=== PATIENT | female | born 1980 | race Caucasian/White ===

== ENCOUNTER 2021-01-23 23:45 | Observation (INO) | payer MEDICAID, SELFPAY ==
[2021-01-23 23:51] VITALS: BP 113/67; PULSE 75; RESP 12; TEMP 36.6; O2SAT 97; BMI 19.7
[2021-01-24] VITALS (25 sets, daily range): BP systolic 94–129; BP diastolic 62–87; PULSE 53–88; RESP 0–17; TEMP 36.4; O2SAT 97–100
[2021-01-24] MEDS: sodium chloride 0.9% 1,000 ML 999 ML IV (00:28)
[2021-01-24 00:33] LABS: Glucose Point of Care 60 mg/dL (70-110)
[2021-01-24 00:52] LABS: Amphetamines Screen Urine Positive (Negative); Barbiturates Screen Urine Negative (Negative); Benzodiazepines Screen Urine Negative (Negative); Cocaine Screen Urine Negative (Negative); Opiate Screen Urine Negative (Negative); PCP Screen Urine Negative (Negative); THC Screen Urine Positive (Negative)
[2021-01-24 00:54] LABS: Add Urine Culture? Yes; Add Urine Microscopic? YES; Bacteria Urine 4+ /hpf; Bilirubin Urine Neg (Negative); Blood Urine Neg (Negative); Glucose Urine UA Norm (Normal); Ketones Urine Negative (Negative); Leukocyte Esterase Urine 1+ (Negative); Nitrate Urine Positive (Negative); Protein Urine Neg (Negative); RBC Urine 0-4 /hpf (0-2); Specific Gravity, Urine 1.005 (1.005-1.030); Squamous Epithelial Cell Urine 0-4 /hpf (0-5); Urine Appearance Hazy (CLEAR); Urine Color Yellow (Yellow); Urobilinogen Urine Norm (Negative); WBC Urine 40-55 /hpf (0-5); pH Urine 7 (5-7)
[2021-01-24 00:55] LABS: HCG Qualitative Urine. Negative (Negative)
[2021-01-24 01:12] LABS: Acetaminophen < 5.0 ug/mL (10-30); Alanine Aminotransferase 8 U/L (0-33); Albumin Level 4.3 g/dL (3.5-5.2); Alcohol Level < 10 mg/dL (0-10); Alkaline Phosphatase 60 IU/L (35-105); Anion Gap 10.9 (5-19); Aspartate Amino Transferase 17 U/L (0-32); Blood Urea Nitrogen 12 mg/dL (6-20); Calcium 8.5 mg/dL (8.5-10.5); Carbon Dioxide 28 mmol/L (22-29); Chloride 104 mmol/L (98-107); Glomerular Filtration Rate 110.2 mL/min (90-130); Glucose 80 mg/dL (65-115); Osmolality Calculated 287 mOsm/kg (285-295); Potassium 3.9 mmol/L (3.5-5.1); Salicylate < 0.3 mg/dL (3-10); Sodium 139 mmol/L (136-145); Thyroid Stimulating Hormone 4.63 uIU/mL (0.27-4.20); Total Bilirubin 0.2 mg/dL (0.15-1.2); Total Protein 6.3 g/dL (6.6-8.7)
[2021-01-24 01:19] LABS: Basophils # 0.1 10^3/uL (0.0-0.1); Basophils % 0.9 %; Eosinophils # 0.2 10^3/uL (0.0-0.8); Eosinophils % 2.6 %; Hematocrit 38.8 % (37.0-47.0); Hemoglobin 12.7 g/dL (11.5-15.3); Mean Corpuscular HGB Conc 32.7 g/dL (30.0-36.0); Mean Corpuscular Hemoglobin 32.5 pg (28.0-34.0); Mean Corpuscular Volume 99.2 fL (81-99); Mean Platelet Volume 9.8 fL (7.4-10.4); Monocytes # 0.5 10^3/uL (0.2-0.9); Monocytes % 6.5 %; Neutrophils # 3.37 10^3/uL (1.8-7.7); Neutrophils % 47.9 %; Nucleated Red Blood Cells % 0 %; Platelet Count 251 10^3/cmm (130-400); Red Blood Count 3.91 10^6/uL (4.1-5.3); Red Cell Distribution Width 12.6 % (12.1-15.1)
--- NOTE | 2021-01-24 01:32 | CTR_ITS ---
PROCEDURE INFORMATION: Exam: CT Head Without Contrast Exam date and time: 01/24/2021 1:33 AM Age: 40 years old Clinical indication: Altered mental status/memory loss; Patient HX: AMS. Unresponsive. Non verbal. TECHNIQUE: Imaging protocol: Computed tomography of the head without contrast. Radiation optimization: All CT scans at this facility use at least one of these dose optimization techniques: automated exposure control; mA and/or kV adjustment per patient size (includes targeted exams where dose is matched to clinical indication); or iterative reconstruction. COMPARISON: No relevant prior studies available. RADIATION DOSE METRICS: Total DLP (mGy-cm): 988.19 FINDINGS: Brain: Normal. No infarct or hemorrhage. Unremarkable white matter. No mass effect. Cerebral ventricles: No ventriculomegaly. Bones/joints: Unremarkable. No acute fracture. Paranasal sinuses: Paranasal sinuses are clear. No air-fluid level. Mastoid air cells: Visualized mastoid air cells are clear. Soft tissues: Unremarkable. CT/CT head wo con* [id number] IMPRESSION: No acute intracranial abnormality. Radiation Dose CTDIVOL = (mGy): DLP = 988.19 (mGy-cm)
--- NOTE | 2021-01-24 02:31 | ED_ITS ---
HPI - Altered Mental Status General: Chief Complaint: Altered Mental Status Stated Complaint: FOUND UNRESPONSIVE Time Seen by Provider: 01/24/21 00:11 History of Present Illness: HPI narrative: 40-year-old female brought in with altered mental status. [facility] complaint: altered mental status and decreased responsiveness Onset (ago): unknown Severity: moderate Consistency of symptoms: Unknown Context: unknown Review of Systems General: Reports: ROS unobtainable due to mental status PFS ED PFSH: Medical History (Updated 01/24/21 @ 03:35 by Quinn Wilburn MD) No significant medical problems Surgical History (Updated 01/24/21 @ 03:35 by Quinn Wilburn MD) No pertinent past surgical history Family History (Updated 01/24/21 @ 03:36 by Quinn Wilburn MD) Other No pertinent family history Social History (Updated 01/24/21 @ 03:36 by Quinn Wilburn MD) Smoking and tobacco status: current every day smoker Alcohol intake: current Substance/Drug Use: never Housing: House Female Reproductive History: Date of last menstrual period: 01/23/21 Physical Exam Narrative: EXAM NARRATIVE: 40-year-old female brought in with altered mental status. Patient does not respond verbally. She does respond to sternal rubs. She moves all extremities. Const: COMMON NORMALS: average body habitus, healthy appearing and well nourished; negative for patient oriented x3 and negative for alert EXAM LIMITATIONS: altered mental status GENERAL APPEARANCE: well kempt and lethargic ORIENTATION/CONSCIOUSNESS: Yes lethargic and Yes Other orientation findings (Unresponsive to verbal stimuli.); not awake, not oriented to person, not oriented to place and not oriented to time HENMT: COMMON NORMALS: normocephalic and atraumatic HEAD & SCALP: normocephalic and atraumatic FACE & SINUS: normal facial exam MOUTH: Normal oral and palatal mucosa present Eye: COMMON NORMALS: Equal, round and reactive pupils present GENERAL EYE: appearance normal, both eyes and all related structures and normal light reflex PUPIL: Yes Equal, round and reactive pupils present DIRECT OPHTHALMOSCOPY: Yes normal light reflex Neck/C-Spine: COMMON NORMALS: full ROM, no lymphadenopathy, supple, no meningeal signs, no JVD, Thyroid normal and No carotid bruits GENERAL: Yes normal visual inspection and Yes trachea midline THYROID: Thyroid normal CERVICAL SPINE: Yes normal cervical lordosis and No pain with cervical ROM Resp: COMMON NORMALS: normal respiratory effort, No retractions, No use of accessory muscles and clear to auscultation bilaterally EFFORT & INSPECTION: No able to speak in complete sentences (Patient unresponsive to verbal stimuli), Yes symmetric chest movement, No tachypneic, No respiratory distress, No labored, No grunting, No stridor, No Actively coughing, No retractions and No uses accessory muscles AUSCULTATION: clear to auscultation bilaterally, no crackles, no rales, no rhonchi and no wheezes Cardio: COMMON NORMALS: no JVD, regular rate, regular rhythm, No gallops present (Cardio), No clicks present (Cardio), No murmurs present (Cardio) and No rub (Cardio) RATE: regular rate RHYTHM: regular rhythm GI: COMMON NORMALS: Soft to palpation, non-tender and No hepatosplenomegaly present INSPECTION: Yes normal to inspection PALPATION: Yes Soft to palpation and Yes No hepatosplenomegaly present : COMMON NORMALS: Yes no CVA tenderness BLADDER/KIDNEY EXAM: Yes no CVA tenderness Back/Pelvis: COMMON NORMALS: no CVA tenderness Extremity: COMMON NORMALS: normal to inspection, no joint enlargement, no clubbing, cyanosis or edema, no calf tenderness and no pedal edema Neuro: COMMON NORMALS: moves all extremities and no focal motor deficits; negative for patient oriented x3 SENSORIUM/ORIENTATION: No alert, No oriented to person, No oriented to place, No oriented to time, Yes Orientation impaired, Yes lethargic and Yes somnolent MENINGEAL SIGNS: Yes no meningeal signs GAIT: Yes Unable to assess gait Psych: APPEARANCE: Yes well kempt OTHER: Not able to evaluate psychiatric conditions secondary to altered mental status Course Reevaluation(s): Reevaluation #1: Patient did not respond to Narcan. Vital Signs: Vital signs: Vital Signs Temperature 97.8 F 01/23/21 23:51 Pulse Rate 57 L 01/24/21 06:00 Respiratory Rate 15 01/24/21 06:00 Blood Pressure 107/78 01/24/21 06:00 Pulse Oximetry 100 01/24/21 06:00 MDM - Altered Mental Status Lab Data: Labs: Lab Results 01/24/21 01/24/21 01/24/21 Range/Units 00:27 00:27 00:27 WBC Cancelled Corrected WBC Cancelled RBC Cancelled Hgb Cancelled Hct Cancelled MCV Cancelled MCH Cancelled MCHC Cancelled RDW Cancelled Plt Count Cancelled MPV Cancelled Gran % Cancelled Neut % (Auto) Cancelled Lymph % (Auto) Cancelled Placer % (Auto) Cancelled Eos % (Auto) Cancelled Baso % (Auto) Cancelled Neut # (Auto) Cancelled Lymph # (Auto) Cancelled Placer # (Auto) Cancelled Eos # (Auto) Cancelled Baso # (Auto) Cancelled Absolute Gran (aut o) Cancelled Nucleated RBC % (a uto) Cancelled Nucleated RBCs # Cancelled Specimen Type Sample Site ABG pH (7.35-7.45) ABG pCO2 (35-45) mmHg ABG pO2 (80.0-100.0) mmH g ABG HCO3 (22-26) mmol/L ABG Base Excess (-2.0-2.0) mmol/ L Rio Test Hematocrit (37-47) % O2 Delivery Device Internal Sales Engineer ID Sodium 139 (136-145) mmol/L Potassium 3.9 (3.5-5.1) mmol/L Chloride 104 (98-107) mmol/L Carbon Dioxide 28 (22-29) mmol/L Anion Gap 10.9 (5-19) BUN 12 (6-20) mg/dL Creatinine 0.6 (0.5-0.9) mg/dL GFR Calculation 110.2 (90-130) mL/min Glucose 80 (65-115) mg/dL POC Glucose (70-110) mg/dL Calculated Osmolal ity 287 (285-295) mOsm/k g Calcium 8.5 (8.5-10.5) mg/dL Total Bilirubin 0.2 (0.15-1.2) mg/dL AST 17 (0-32) U/L ALT 8 (0-33) U/L Alkaline Phosphata se 60 (35-105) IU/L Total Protein 6.3 L (6.6-8.7) g/dL Albumin 4.3 (3.5-5.2) g/dL Globulin 2.0 (1.3-4.6) g/dL Vitamin B12 (232-1245) pg/mL TSH 4.63 H (0.27-4.20) uIU/ mL Free T4 (0.82-1.77) ng/d L Prolactin (4.8-23.3) ng/mL HCG, Qual Negative (Negative) Urine Color (Yellow) Urine Appearance (CLEAR) Urine pH (5-7) Ur Specific Gravit y (1.005-1.030) Urine Protein (Negative) Urine Glucose (UA) (Normal) Urine Ketones (Negative) Urine Blood (Negative) Urine Nitrate (Negative) Urine Bilirubin (Negative) Urine Urobilinogen (Negative) mg/dL Ur Leukocyte Idalia ase (Negative) Urine RBC (0-2) /hpf Urine WBC (0-5) /hpf Ur Squamous Epith Cells (0-5) /hpf Amorphous Sediment Urine Bacteria (NONE) /hpf Salicylates < 0.3 L (3-10) mg/dL Urine Opiates Scre en (Negative) ng/mL Acetaminophen < 5.0 L (10-30) ug/mL Ur Barbiturates Sc reen (Negative) ng/mL Ur Phencyclidine S crn (Negative) ng/mL Ur Amphetamines Sc reen (Negative) ng/mL U Benzodiazepines Scrn (Negative) ng/mL Urine Cocaine Scre en (Negative) ng/mL U Marijuana (THC) Screen (Negative) ng/mL Ethyl Alcohol < 10 (0-10) mg/dL 01/24/21 01/24/21 01/24/21 Range/Units 00:27 00:27 00:27 WBC Corrected WBC RBC Hgb Hct MCV MCH MCHC RDW Plt Count MPV Gran % Neut % (Auto) Lymph % (Auto) Placer % (Auto) Eos % (Auto) Baso % (Auto) Neut # (Auto) Lymph # (Auto) Placer # (Auto) Eos # (Auto) Baso # (Auto) Absolute Gran (aut o) Nucleated RBC % (a uto) Nucleated RBCs # Specimen Type Sample Site ABG pH (7.35-7.45) ABG pCO2 (35-45) mmHg ABG pO2 (80.0-100.0) mmH g ABG HCO3 (22-26) mmol/L ABG Base Excess (-2.0-2.0) mmol/ L Rio Test Hematocrit (37-47) % O2 Delivery Device Internal Sales Engineer ID Sodium (136-145) mmol/L Potassium (3.5-5.1) mmol/L Chloride (98-107) mmol/L Carbon Dioxide (22-29) mmol/L Anion Gap (5-19) BUN (6-20) mg/dL Creatinine (0.5-0.9) mg/dL GFR Calculation (90-130) mL/min Glucose (65-115) mg/dL POC Glucose (70-110) mg/dL Calculated Osmolal ity (285-295) mOsm/k g Calcium (8.5-10.5) mg/dL Total Bilirubin (0.15-1.2) mg/dL AST (0-32) U/L ALT (0-33) U/L Alkaline Phosphata se (35-105) IU/L Total Protein (6.6-8.7) g/dL Albumin (3.5-5.2) g/dL Globulin (1.3-4.6) g/dL Vitamin B12 430 (232-1245) pg/mL TSH 4.68 H (0.27-4.20) uIU/ mL Free T4 0.90 (0.82-1.77) ng/d L Prolactin (4.8-23.3) ng/mL HCG, Qual (Negative) Urine Color Yellow (Yellow) Urine Appearance Hazy A (CLEAR) Urine pH 7 (5-7) Ur Specific Gravit y 1.005 (1.005-1.030) Urine Protein Neg (Negative) Urine Glucose (UA) Norm (Normal) Urine Ketones Negative (Negative) Urine Blood Neg (Negative) Urine Nitrate Positive H (Negative) Urine Bilirubin Neg (Negative) Urine Urobilinogen Norm (Negative) mg/dL Ur Leukocyte Idalia ase 1+ H (Negative) Urine RBC 0-4 H (0-2) /hpf Urine WBC 40-55 H (0-5) /hpf Ur Squamous Epith Cells 0-4 H (0-5) /hpf Amorphous Sediment Not Reportable Urine Bacteria 4+ H (NONE) /hpf Salicylates (3-10) mg/dL Urine Opiates Scre en Negative (Negative) ng/mL Acetaminophen (10-30) ug/mL Ur Barbiturates Sc reen Negative (Negative) ng/mL Ur Phencyclidine S crn Negative (Negative) ng/mL Ur Amphetamines Sc reen Positive H (Negative) ng/mL U Benzodiazepines Scrn Negative (Negative) ng/mL Urine Cocaine Scre en Negative (Negative) ng/mL U Marijuana (THC) Screen Positive H (Negative) ng/mL Ethyl Alcohol (0-10) mg/dL 01/24/21 01/24/21 01/24/21 Range/Units 00:27 00:29 01:13 WBC 7.0 Corrected WBC RBC 3.91 L Hgb 12.7 Hct 38.8 MCV 99.2 H MCH 32.5 MCHC 32.7 RDW 12.6 Plt Count 251 MPV 9.8 Gran % Neut % (Auto) 47.9 Lymph % (Auto) 42.0 Placer % (Auto) 6.5 Eos % (Auto) 2.6 Baso % (Auto) 0.9 Neut # (Auto) 3.37 Lymph # (Auto) 3.0 Placer # (Auto) 0.5 Eos # (Auto) 0.2 Baso # (Auto) 0.1 Absolute Gran (aut o) Nucleated RBC % (a uto) 0 Nucleated RBCs # 0.0 Specimen Type Sample Site ABG pH (7.35-7.45) ABG pCO2 (35-45) mmHg ABG pO2 (80.0-100.0) mmH g ABG HCO3 (22-26) mmol/L ABG Base Excess (-2.0-2.0) mmol/ L Rio Test Hematocrit (37-47) % O2 Delivery Device Internal Sales Engineer ID Sodium (136-145) mmol/L Potassium (3.5-5.1) mmol/L Chloride (98-107) mmol/L Carbon Dioxide (22-29) mmol/L Anion Gap (5-19) BUN (6-20) mg/dL Creatinine (0.5-0.9) mg/dL GFR Calculation (90-130) mL/min Glucose (65-115) mg/dL POC Glucose 60 L (70-110) mg/dL Calculated Osmolal ity (285-295) mOsm/k g Calcium (8.5-10.5) mg/dL Total Bilirubin (0.15-1.2) mg/dL AST (0-32) U/L ALT (0-33) U/L Alkaline Phosphata se (35-105) IU/L Total Protein (6.6-8.7) g/dL Albumin (3.5-5.2) g/dL Globulin (1.3-4.6) g/dL Vitamin B12 (232-1245) pg/mL TSH (0.27-4.20) uIU/ mL Free T4 (0.82-1.77) ng/d L Prolactin 22.55 (4.8-23.3) ng/mL HCG, Qual (Negative) Urine Color (Yellow) Urine Appearance (CLEAR) Urine pH (5-7) Ur Specific Gravit y (1.005-1.030) Urine Protein (Negative) Urine Glucose (UA) (Normal) Urine Ketones (Negative) Urine Blood (Negative) Urine Nitrate (Negative) Urine Bilirubin (Negative) Urine Urobilinogen (Negative) mg/dL Ur Leukocyte Idalia ase (Negative) Urine RBC (0-2) /hpf Urine WBC (0-5) /hpf Ur Squamous Epith Cells (0-5) /hpf Amorphous Sediment Urine Bacteria (NONE) /hpf Salicylates (3-10) mg/dL Urine Opiates Scre en (Negative) ng/mL Acetaminophen (10-30) ug/mL Ur Barbiturates Sc reen (Negative) ng/mL Ur Phencyclidine S crn (Negative) ng/mL Ur Amphetamines Sc reen (Negative) ng/mL U Benzodiazepines Scrn (Negative) ng/mL Urine Cocaine Scre en (Negative) ng/mL U Marijuana (THC) Screen (Negative) ng/mL Ethyl Alcohol (0-10) mg/dL 01/24/21 Range/Units 03:05 WBC Corrected WBC RBC Hgb Hct MCV MCH MCHC RDW Plt Count MPV Gran % Neut % (Auto) Lymph % (Auto) Placer % (Auto) Eos % (Auto) Baso % (Auto) Neut # (Auto) Lymph # (Auto) Placer # (Auto) Eos # (Auto) Baso # (Auto) Absolute Gran (aut o) Nucleated RBC % (a uto) Nucleated RBCs # Specimen Type Arterial Sample Site Radial, left ABG pH 7.36 (7.35-7.45) ABG pCO2 47.8 H (35-45) mmHg ABG pO2 87.1 (80.0-100.0) mmH g ABG HCO3 26.8 H (22-26) mmol/L ABG Base Excess 0.7 (-2.0-2.0) mmol/ L Rio Test Pos Hematocrit 39.3 (37-47) % O2 Delivery Device Room air Internal Sales Engineer ID [email or web address] Sodium (136-145) mmol/L Potassium (3.5-5.1) mmol/L Chloride (98-107) mmol/L Carbon Dioxide (22-29) mmol/L Anion Gap (5-19) BUN (6-20) mg/dL Creatinine (0.5-0.9) mg/dL GFR Calculation (90-130) mL/min Glucose (65-115) mg/dL POC Glucose (70-110) mg/dL Calculated Osmolal ity (285-295) mOsm/k g Calcium (8.5-10.5) mg/dL Total Bilirubin (0.15-1.2) mg/dL AST (0-32) U/L ALT (0-33) U/L Alkaline Phosphata se (35-105) IU/L Total Protein (6.6-8.7) g/dL Albumin (3.5-5.2) g/dL Globulin (1.3-4.6) g/dL Vitamin B12 (232-1245) pg/mL TSH (0.27-4.20) uIU/ mL Free T4 (0.82-1.77) ng/d L Prolactin (4.8-23.3) ng/mL HCG, Qual (Negative) Urine Color (Yellow) Urine Appearance (CLEAR) Urine pH (5-7) Ur Specific Gravit y (1.005-1.030) Urine Protein (Negative) Urine Glucose (UA) (Normal) Urine Ketones (Negative) Urine Blood (Negative) Urine Nitrate (Negative) Urine Bilirubin (Negative) Urine Urobilinogen (Negative) mg/dL Ur Leukocyte Idalia ase (Negative) Urine RBC (0-2) /hpf Urine WBC (0-5) /hpf Ur Squamous Epith Cells (0-5) /hpf Amorphous Sediment Urine Bacteria (NONE) /hpf Salicylates (3-10) mg/dL Urine Opiates Scre en (Negative) ng/mL Acetaminophen (10-30) ug/mL Ur Barbiturates Sc reen (Negative) ng/mL Ur Phencyclidine S crn (Negative) ng/mL Ur Amphetamines Sc reen (Negative) ng/mL U Benzodiazepines Scrn (Negative) ng/mL Urine Cocaine Scre en (Negative) ng/mL U Marijuana (THC) Screen (Negative) ng/mL Ethyl Alcohol (0-10) mg/dL Discharge Plan Discharge Patient Disposition: Admitted As Inpatient Admit Provider: Quinn Wilburn Coding Level of Care Code ED Hotel Server for Chg Fwd Exam Comprehensive
--- NOTE | 2021-01-24 02:36 | XRR_ITS ---
PROCEDURE INFORMATION: Exam: XR Chest Exam date and time: 01/24/2021 2:40 AM Age: 40 years old Clinical indication: Patient HX: AMS. Patient unresponsive. Non verbal. TECHNIQUE: Imaging protocol: XR of the chest. Views: 1 view. COMPARISON: No relevant prior studies available. FINDINGS: Lungs: Unremarkable. No consolidation. Pleural spaces: Unremarkable. No pleural effusion. No pneumothorax. Heart/Mediastinum: Unremarkable. No cardiomegaly. Bones/joints: Unremarkable. XR/XR chest 1V portable [id number] IMPRESSION: No acute findings.
[2021-01-24] MEDS: naloxone 0.4 mg/ml SDV IVP (02:50)
[2021-01-24 03:12] LABS: ABG PCO2 47.8 mmHg (35-45); ABG PH Result 7.36 (7.35-7.45); Arterial Blood Gas Hematocrit 39.3 % (37-47); Base Excess ABG 0.7 mmol/L (-2.0-2.0); Blood Gas Allen Test Pos; Blood Gas Sample Site Radial, left; Blood Gas Sample Type Arterial; HCO3 ABG 26.8 mmol/L (22-26); Oxygen Device ROOM AIR; PO2 ABG 87.1 mmHg (80.0-100.0)
--- NOTE | 2021-01-24 03:34 | P.HP_ITS ---
Providers/Chief Complaint Chief Complaint: FOUND UNRESPONSIVE History of Present Illness Katelyn Power is a 40 year old female who was brought in by EMS after she was found on the floor in [facility]. Patient is arousable to noxious stimuli, she moves her extremities and makes grunting sounds however does not open eyes or communicate, normal CBC, ABG revealed normal pH no hypercapnia, blood glucose low normal, TSH 4.6, urinalysis consistent with UTI, drug screen positive for methamphetamine and marijuana, EKG showing sinus bradycardia blood pressure within normal range. She received 1 L normal saline and a dose of Narcan without significant improvement I requested an amp of D50 and will transfer to ICU no active need of intubation, she is able to protect her airways, does respond to noxious stimuli move all of her extremities, CT head unremarkable. Review of Systems General: Reports: ROS unobtainable due to medical condition (Hypoactive delirium/encephalopathy) Medications/Allergies Allergies Allergy/AdvReac Type Severity Reaction Status Date / Time No Known Allergies Allergy Verified 01/23/21 23:51 PFSH Acute PFSH: Medical History (Updated 01/24/21 @ 03:35 by Quinn Wilburn MD) No significant medical problems Surgical History (Updated 01/24/21 @ 03:35 by Quinn Wilburn MD) No pertinent past surgical history Family History (Updated 01/24/21 @ 03:36 by Quinn Wilburn MD) Other No pertinent family history Social History (Updated 01/24/21 @ 03:36 by Quinn Wilburn MD) Smoking and tobacco status: current every day smoker Alcohol intake: current Substance/Drug Use: never Housing: House Female Reproductive History: Date of last menstrual period: 01/23/21 Vitals/I&O/Wt Last Vital Signs Temp 97.8 F 01/23/21 23:51 Pulse 58 L 01/24/21 02:51 Resp 16 01/24/21 02:51 BP 106/75 01/24/21 02:51 Pulse Ox 100 01/24/21 02:51 01/23/21 01/23/21 01/24/21 14:59 22:59 06:59 Intake Total 1000 / 1000 Balance 1000 / 1000 Weight last 48 hrs Weight 52.163 kg Physical Exam Narrative: EXAM NARRATIVE: Young female Encephalopathy Response to noxious stimuli moves all 4 extremities, Makes grunting sounds, positive withdrawal to pain Not opening eyes on verbal command No active emesis Sinus bradycardia S1-S2 no murmur appreciated Multiple skin tattoos Skin goosebumps noticed Pupils dilated No tachypnea no audible loud stridor or wheezing Neuro exam limited No signs of ischemia gangrene or ulcer of lower extremities Soft abdomen bowel sound present Data : 01/24/21 01:13 01/24/21 00:27 A&P Assessment and plan (1) Encephalopathy acute: Status: Acute (2) Drug overdose: Status: Acute Additional A&P Information Acute metabolic encephalopathy Drug screen positive for methamphetamine and marijuana Did not respond to Narcan, no signs of hypercapnia, no signs of stroke, CT head unremarkable Sinus bradycardia with normal blood pressure UA consistent with UTI We will admit to ICU for close monitoring We will give her another dose of Narcan, 1 amp of D50 for low normal blood sugar, start ceftriaxone GCS 9 she is localizing to pain Will request free T4 abnormal TSH noted Will request prolactin levels to rule out any seizure-like activity I have tried to call her it went straight to voicemail, I have left a message We will keep her n.p.o. for now until her mentation improves DVT prophylaxis Lovenox Full code Attestations Medical Necessity Statement*: Anticipating stay in the hospital cross more than 2 midnights will need close monitoring because of encephalopathy and drug overdose Time Spent in Patient Care: 30mins Coding Level of Care Code Acute Wire Straightening Machine Operator for Lion Reyna Diagnoses Encephalopathy acute G93.40 Drug overdose T50.901A
[2021-01-24] MEDS: dextrose 50% syringe 50 mL 25 ML IVP (04:11)
[2021-01-24 04:44] LABS: Prolactin 22.55 ng/mL (4.8-23.3)
[2021-01-24 04:50] LABS: Thyroid Stimulating Hormone 4.68 uIU/mL (0.27-4.20); Vitamin B12 430 pg/mL (232-1245)
[2021-01-24] MEDS: dextrose 5%-sod chloride 0.45% 1,000 ML 75 ML IV (05:41)
[2021-01-24] MEDS: enoxaparin 40 mg/0.4 mL Syringe SUBCUT (05:58)
[2021-01-24 06:47] LABS: Total Hemoglobin 12.8 g/dL (12-16)
[2021-01-24 06:48] LABS: Carboxyhemoglobin 2.9 %THgb (0.4-20.1); HGB O2 Sat 93.2 % (95-100); Methemoglobin 0.9 % (0.4-1.5)
[2021-01-24] MEDS: cefTRIAXone 1,000 MG in sodium chloride 0.9% (plus) 50 ML 100 MG IV (08:45)
[2021-01-24] MEDS: folic acid 1 mg Tablet PO (08:46)
[2021-01-24 14:20] LABS: SARS Covid-2 Antigen Negative (Negative)
--- NOTE | 2021-01-24 17:50 | PC.NURSE ---
called to pt room. pt states she would like to leave. I educated her that this was against medical advise. She stated that she understood and would still like to leave. Dr. Hernandez notified and is ok with AMA. pt PIV taken out belongings returned to her and AMA form completed.
--- NOTE | 2021-01-24 18:06 | P.DS_ITS ---
Discharge Providers Date of Admission: 01/24/21 05:30 Date of Discharge: January 24, 2021 Attending Provider at Admission: Quinn Wilburn MD Attending Provider at Discharge: Allyson Hernandez MD Diagnoses at Discharge Discharge Diagnosis (1) Encephalopathy acute: Status: Acute (2) Drug overdose: Status: Acute Reason for Visit Reason for Visit: FOUND UNRESPONSIVE Hospital Course Hospital Course 40 year old lady presented to the hospital after being found unresponsive at [facility]. Several doses of narcan did not appear to help. She was protecting her airway, managed with supportive management, IVF and close hemodynamic monitoring in the ICU. By 01/24 early am, patient became alert, awake and oriented, ambulating independently. Her uTox was positive for amphetamines and marijuana, secondary to recreational drug use. Denies recent IVDU, last few months ago, some track patterson noted over left and right forearm and B/L feet. Blood cx taken to r/o subacute infective endocarditis. Patient wished to leave AMA on 01/24/21. Physical Exam Narrative: EXAM NARRATIVE: Examined at 11 am on 01/24 GEn: awake, alert, oriented CVS: [id number] RS: Clear to auscultation B/L Abd: Soft, non tender, non distended, BS+ Ext: no edema, clubbing or cyanosis Discharge Data Data Completed and Pending: Completed Studies During Hospitalization Category Date Time Status CT head wo con* 7 [id number] Urgent Cat Scan 01/24/21 01:32 Completed XR chest 1V glenn ble [id number] Stat Exams 01/24/21 02:36 Completed Pending at discharge Category Date Time Status Blood Culture Sta t Lab 01/24/21 12:40 Results Urine Culture Sta t Lab 01/24/21 00:27 Received Labs from last 24 hours 01/24/21 01/24/21 01/24/21 13:08 03:05 01:13 WBC 7.0 Corrected WBC RBC 3.91 L Hgb 12.7 Hct 38.8 MCV 99.2 H MCH 32.5 MCHC 32.7 RDW 12.6 Plt Count 251 MPV 9.8 Gran % Neut % (Auto) 47.9 Lymph % (Auto) 42.0 [place] % (Auto) 6.5 Eos % (Auto) 2.6 Baso % (Auto) 0.9 Neut # (Auto) 3.37 Lymph # (Auto) 3.0 [place] # (Auto) 0.5 Eos # (Auto) 0.2 Baso # (Auto) 0.1 Absolute Gran (aut o) Nucleated RBC % (a uto) 0 Nucleated RBCs # 0.0 Specimen Type Arterial Sample Site Radial, left ABG pH 7.36 ABG pCO2 47.8 H ABG pO2 87.1 ABG HCO3 26.8 H ABG Base Excess 0.7 [place] Test Pos Hematocrit 39.3 Hgb O2 Saturation 93.2 L Carboxyhemoglobin 2.9 Methemoglobin 0.9 Total Hemoglobin 12.8 O2 Delivery Device Room air Lining Inserter ID ellpe Sodium Potassium Chloride Carbon Dioxide Anion Gap BUN Creatinine GFR Calculation Glucose POC Glucose Calculated Osmolal ity Calcium Total Bilirubin AST ALT Alkaline Phosphata se Total Protein Albumin Globulin Vitamin B12 TSH Free T4 Prolactin HCG, Qual Urine Color Urine Appearance Urine pH Ur Specific Gravit y Urine Protein Urine Glucose (UA) Urine Ketones Urine Blood Urine Nitrate Urine Bilirubin Urine Urobilinogen Ur Leukocyte Idalia ase Urine RBC Urine WBC Ur Squamous Epith Cells Amorphous Sediment Urine Bacteria Salicylates Urine Opiates Scre en Acetaminophen Ur Barbiturates Sc reen Ur Phencyclidine S crn Ur Amphetamines Sc reen U Benzodiazepines Scrn Urine Cocaine Scre en U Marijuana (THC) Screen Ethyl Alcohol SARS-CoV-2 Ag (Rap id) Negative 01/24/21 01/24/21 01/24/21 00:29 00:27 00:27 WBC Corrected WBC RBC Hgb Hct MCV MCH MCHC RDW Plt Count MPV Gran % Neut % (Auto) Lymph % (Auto) [place] % (Auto) Eos % (Auto) Baso % (Auto) Neut # (Auto) Lymph # (Auto) [place] # (Auto) Eos # (Auto) Baso # (Auto) Absolute Gran (aut o) Nucleated RBC % (a uto) Nucleated RBCs # Specimen Type Sample Site ABG pH ABG pCO2 ABG pO2 ABG HCO3 ABG Base Excess [place] Test Hematocrit Hgb O2 Saturation Carboxyhemoglobin Methemoglobin Total Hemoglobin O2 Delivery Device Lining Inserter ID Sodium Potassium Chloride Carbon Dioxide Anion Gap BUN Creatinine GFR Calculation Glucose POC Glucose 60 L Calculated Osmolal ity Calcium Total Bilirubin AST ALT Alkaline Phosphata se Total Protein Albumin Globulin Vitamin B12 430 TSH 4.68 H Free T4 0.90 Prolactin 22.55 HCG, Qual Urine Color Urine Appearance Urine pH Ur Specific Gravit y Urine Protein Urine Glucose (UA) Urine Ketones Urine Blood Urine Nitrate Urine Bilirubin Urine Urobilinogen Ur Leukocyte Idalia ase Urine RBC Urine WBC Ur Squamous Epith Cells Amorphous Sediment Urine Bacteria Salicylates Urine Opiates Scre en Acetaminophen Ur Barbiturates Sc reen Ur Phencyclidine S crn Ur Amphetamines Sc reen U Benzodiazepines Scrn Urine Cocaine Scre en U Marijuana (THC) Screen Ethyl Alcohol SARS-CoV-2 Ag (Rap id) 01/24/21 01/24/21 01/24/21 00:27 00:27 00:27 WBC Corrected WBC RBC Hgb Hct MCV MCH MCHC RDW Plt Count MPV Gran % Neut % (Auto) Lymph % (Auto) [place] % (Auto) Eos % (Auto) Baso % (Auto) Neut # (Auto) Lymph # (Auto) [place] # (Auto) Eos # (Auto) Baso # (Auto) Absolute Gran (aut o) Nucleated RBC % (a uto) Nucleated RBCs # Specimen Type Sample Site ABG pH ABG pCO2 ABG pO2 ABG HCO3 ABG Base Excess [place] Test Hematocrit Hgb O2 Saturation Carboxyhemoglobin Methemoglobin Total Hemoglobin O2 Delivery Device Lining Inserter ID Sodium Potassium Chloride Carbon Dioxide Anion Gap BUN Creatinine GFR Calculation Glucose POC Glucose Calculated Osmolal ity Calcium Total Bilirubin AST ALT Alkaline Phosphata se Total Protein Albumin Globulin Vitamin B12 TSH Free T4 Prolactin HCG, Qual Negative Urine Color Yellow Urine Appearance Hazy A Urine pH 7 Ur Specific Gravit y 1.005 Urine Protein Neg Urine Glucose (UA) Norm Urine Ketones Negative Urine Blood Neg Urine Nitrate Positive H Urine Bilirubin Neg Urine Urobilinogen Norm Ur Leukocyte Idalia ase 1+ H Urine RBC 0-4 H Urine WBC 40-55 H Ur Squamous Epith Cells 0-4 H Amorphous Sediment Not Reportable Urine Bacteria 4+ H Salicylates Urine Opiates Scre en Negative Acetaminophen Ur Barbiturates Sc reen Negative Ur Phencyclidine S crn Negative Ur Amphetamines Sc reen Positive H U Benzodiazepines Scrn Negative Urine Cocaine Scre en Negative U Marijuana (THC) Screen Positive H Ethyl Alcohol SARS-CoV-2 Ag (Rap id) 01/24/21 01/24/21 00:27 00:27 WBC Cancelled Corrected WBC Cancelled RBC Cancelled Hgb Cancelled Hct Cancelled MCV Cancelled MCH Cancelled MCHC Cancelled RDW Cancelled Plt Count Cancelled MPV Cancelled Gran % Cancelled Neut % (Auto) Cancelled Lymph % (Auto) Cancelled [place] % (Auto) Cancelled Eos % (Auto) Cancelled Baso % (Auto) Cancelled Neut # (Auto) Cancelled Lymph # (Auto) Cancelled [place] # (Auto) Cancelled Eos # (Auto) Cancelled Baso # (Auto) Cancelled Absolute Gran (aut o) Cancelled Nucleated RBC % (a uto) Cancelled Nucleated RBCs # Cancelled Specimen Type Sample Site ABG pH ABG pCO2 ABG pO2 ABG HCO3 ABG Base Excess [place] Test Hematocrit Hgb O2 Saturation Carboxyhemoglobin Methemoglobin Total Hemoglobin O2 Delivery Device Lining Inserter ID Sodium 139 Potassium 3.9 Chloride 104 Carbon Dioxide 28 Anion Gap 10.9 BUN 12 Creatinine 0.6 GFR Calculation 110.2 Glucose 80 POC Glucose Calculated Osmolal ity 287 Calcium 8.5 Total Bilirubin 0.2 AST 17 ALT 8 Alkaline Phosphata se 60 Total Protein 6.3 L Albumin 4.3 Globulin 2.0 Vitamin B12 TSH 4.63 H Free T4 Prolactin HCG, Qual Urine Color Urine Appearance Urine pH Ur Specific Gravit y Urine Protein Urine Glucose (UA) Urine Ketones Urine Blood Urine Nitrate Urine Bilirubin Urine Urobilinogen Ur Leukocyte Idalia ase Urine RBC Urine WBC Ur Squamous Epith Cells Amorphous Sediment Urine Bacteria Salicylates < 0.3 L Urine Opiates Scre en Acetaminophen < 5.0 L Ur Barbiturates Sc reen Ur Phencyclidine S crn Ur Amphetamines Sc reen U Benzodiazepines Scrn Urine Cocaine Scre en U Marijuana (THC) Screen Ethyl Alcohol < 10 SARS-CoV-2 Ag (Rap id) Vitals: Last Vital Signs Temp 97.6 F 01/24/21 16:00 Pulse 66 01/24/21 16:00 Resp 17 01/24/21 16:00 BP 94/69 01/24/21 16:00 Pulse Ox 100 01/24/21 16:00 Discharge Plan Discharge Patient Disposition: Left Against Medical Advice Prescriptions: No Action Unable to Assess RF: 0 Discharge Attestations Time Spent in Discharge Care*: less than 30 min Quality Metrics Clinical Quality Measures During this hospital stay, did patient experience: None Coding Level of Care Code Acute Chg FW DC note Diagnoses Encephalopathy acute G93.40 Drug overdose T50.901A
--- NOTE | 2021-01-27 08:53 | PC.RESP ---
SMOKING CESSATION INFORMATION SENT TO PATIENT.
== END 2021-01-24 17:58 | disposition left against medical advice (07) | DRG 917 ==
LOC: ER 01-24 00:19 → ICU 01-24 09:24
PROVIDERS: Admitting Provider Internal Medicine; Emergency Provider Emergency Medicine; Visit Provider Student in an Organized Health Care Education/Training Program
DX: T43.621A Poisoning by amphetamines, accidental (unintentional), initial encounter (principal); G93.41 Metabolic encephalopathy; N39.0 Urinary tract infection, site not specified; T40.7X1A Poisoning by cannabis (derivatives), accidental (unintentional), initial encounter; Z53.29 Procedure and treatment not carried out because of patient's decision for other reasons
CPT/HCPCS: 36415; 36416; 36600; 70450; 71045; 80053; 80306; 80307; 81001; 81025; 82607; 82803; 82805; 82962; 84146; 84439; 84443; 85025; 87040; 87077; 87086; 87186; 87426; 96361; 96372; 96374; 96375; 99285; G0378; J0696; J1650; J2310; J3411; J7030; J7799

== ENCOUNTER 2023-05-28 15:03 | Outpatient (CLI) | payer MEDICAID, SELFPAY ==
--- NOTE | 2023-05-28 15:13 | XRR_ITS ---
PROCEDURE INFORMATION: Exam: XR Right Elbow Exam date and time: 05/28/2023 3:15 PM Age: 42 years old Clinical indication: Pain and injury or trauma; Fall; Work related; Blunt trauma (contusions or hematomas); Elbow; Right; Injury details: Fell down at work; Additional info: R elbow joint pain TECHNIQUE: Imaging protocol: Radiologic exam of the right elbow. Views: 3 or more views. COMPARISON: No relevant prior studies available. FINDINGS: Bones/joints: No fracture or acute osseous abnormality. Elbow joint appears maintained. No abnormal fat pad is seen about the distal right humerus on the lateral view to indicate significant effusion. No abnormal soft tissue calcification is seen at the elbow. Soft tissues: See Bones/joints finding. XR/XR elbow RT min 3V* [id number] IMPRESSION: No fracture or acute osseous abnormality.
== END 2023-05-28 15:04 | disposition home or self-care (01) ==
PROVIDERS: PCP Family Medicine; Visit Provider Family Medicine
DX: M25.521 Pain in right elbow (principal); W19.XXXA Unspecified fall, initial encounter; Y92.89 Other specified places as the place of occurrence of the external cause
CPT/HCPCS: 73080

== ENCOUNTER 2024-01-22 08:42 | Emergency (ER) | payer SELFPAY ==
[2024-01-22 08:45] VITALS: BP 133/91; PULSE 100; RESP 18; TEMP 36.6; O2SAT 100; BMI 22.3
--- NOTE | 2024-01-22 09:14 | PC.PHAR ---
PT STATES SHE TAKES NO PRESCRIPTION OR OTC MEDICATIONS NO MEDS PULL UP ON EXT MED HISTORY
[2024-01-22 09:47] VITALS: BP 133/91; PULSE 101; O2SAT 100
[2024-01-22 10:00] LABS: Basophils # 0.1 10^3/uL (0.0-0.1); Basophils % 0.7 %; Eosinophils % 0.2 %; Hematocrit 45.6 % (36-47); Lymphocytes # 1.3 10^3/uL (0.8-4.8); Lymphocytes % 11.9 %; Mean Corpuscular Hemoglobin 34.5 pg (27-33); Mean Corpuscular Volume 101.6 fl (85-98); Mean Platelet Volume 8.4 fL (7.4-10.4); Monocytes # 0.5 10^3/uL (0.2-0.9); Neutrophils # 8.62 10^3/uL (1.8-7.7); Neutrophils % 81.7 %; Nucleated Red Blood Cells % 0 %; Platelet Count 358 10^3/cmm (157-399); Red Blood Count 4.49 10^6/uL (3.85-5.65); Red Cell Distribution Width 14.1 % (12.1-15.1); White Blood Count 10.55 10^3/uL (3.29-11.43)
--- NOTE | 2024-01-22 10:00 | W.ED.ABDPA2 ---
HPI - Abdominal Pain General: Chief Complaint: Abdominal Pain Stated Complaint: ABD PAIN Time Seen by Provider: 01/22/24 08:43 History of Present Illness: Patient presents to the ER with chronic abdominal pain and spasms. Patient said these been happening off and on with no known cause for the last year. They are been getting more frequent and more severe. They are both in the upper and lower abdomen. Patient does have a history of IBS. Patient also states she noticed an odor from her vagina. Patient has taken [id number] Monistat for this issue with no relief. Review of Systems General: Reports: 10 or more systems reviewed and unremarkable except in HPI and below PFSH ED PFSH: Medical History No significant medical problems Surgical History No pertinent past surgical history Family History Other No pertinent family history Social History Smoking and tobacco/nicotine status: current every day tobacco/nicotine user Alcohol intake: current Substance/Drug Use: never Housing: House Physical Exam Const: COMMON NORMALS: no acute distress, average body habitus, patient oriented x3, no limitations, healthy appearing, alert and well nourished HENMT: COMMON NORMALS: normocephalic, atraumatic, hearing grossly normal bilaterally, external ears normal, Normal external nose present, moist oral mucous membranes and oropharynx normal HEAD & SCALP: normocephalic and atraumatic NOSE: Normal external nose present EXTERNAL EAR: Yes external ears normal Neck/C-Spine: COMMON NORMALS: no JVD Chest: COMMONS NORMALS: normal inspection of the chest and normal palpation of entire chest wall Resp: COMMON NORMALS: normal respiratory effort, No retractions, No use of accessory muscles and clear to auscultation bilaterally AUSCULTATION: clear to auscultation bilaterally Cardio: COMMON NORMALS: no JVD, regular rate, regular rhythm, S1 normal heart sound present, S2 normal heart sound present, No gallops present (Cardio), No clicks present (Cardio), No murmurs present (Cardio) and No rub (Cardio) RATE: regular rate RHYTHM: regular rhythm HEART SOUNDS: S1 normal heart sound present and S2 normal heart sound present GI: COMMON NORMALS: Normal to inspection, nondistended, normoactive bowel sounds present, Soft to palpation, non-tender and No hepatosplenomegaly present PALPATION: Yes Soft to palpation and Yes No hepatosplenomegaly present Neuro: COMMON NORMALS: patient oriented x3 SENSORIUM/ORIENTATION: Yes alert Course Vital Signs: Vital signs: Vital Signs Temperature 97.8 F 01/22/24 08:45 Pulse Rate 101 H 01/22/24 09:47 Respiratory Rate 18 01/22/24 08:45 Blood Pressure 133/91 01/22/24 09:47 Pulse Oximetry 100 01/22/24 09:47 Oxygen Delivery Me thod Room Air 01/22/24 09:47 MDM - Abdominal Pain Medical Decision Making Patient lab work included CBC CMP lipase and urinalysis, all of which was essentially benign except urinalysis did show positive signs of infection. Patient be treated with Cipro and referred back to her primary care for further evaluation and treatment. Differential Diagnosis Likely abdominal pain; Unlikely acute appendicitis, calculus of kidney, constipation, diverticulitis, endometriosis, gastroenteritis, pancreatitis or small bowel obstruction Lab Data I reviewed the patient's lab results. 01/22/24 09:54 01/22/24 09:54 Labs/Radiology: Laboratory Results WBC 10.55 10^3/uL (3.29-11.43) 01/22/24 09:54 RBC 4.49 10^6/uL (3.85-5.65) 01/22/24 09:54 Hgb 15.50 g/dL (11.27-16.99) 01/22/24 09:54 Hct 45.6 % (36-47) 01/22/24 09:54 MCV 101.6 fl (85-98) H 01/22/24 09:54 MCH 34.5 pg (27-33) H 01/22/24 09:54 MCHC 34.0 g/dL (30-55) 01/22/24 09:54 RDW 14.1 % (12.1-15.1) 01/22/24 09:54 Plt Count 358 10^3/cmm (157-399) 01/22/24 09:54 MPV 8.4 fL (7.4-10.4) 01/22/24 09:54 Neut % (Auto) 81.7 % 01/22/24 09:54 Lymph % (Auto) 11.9 % 01/22/24 09:54 [place] % (Auto) 5.0 % 01/22/24 09:54 Eos % (Auto) 0.2 % 01/22/24 09:54 Baso % (Auto) 0.7 % 01/22/24 09:54 Neut # (Auto) 8.62 10^3/uL (1.8-7.7) H 01/22/24 09:54 Lymph # (Auto) 1.3 10^3/uL (0.8-4.8) 01/22/24 09:54 [place] # (Auto) 0.5 10^3/uL (0.2-0.9) 01/22/24 09:54 Eos # (Auto) 0.0 10^3/uL (0.0-0.8) 01/22/24 09:54 Baso # (Auto) 0.1 10^3/uL (0.0-0.1) 01/22/24 09:54 Nucleated RBC % (auto) 0 % 01/22/24 09:54 Nucleated RBCs # 0.0 /100WBC 01/22/24 09:54 Sodium 134 mmol/L (136-145) L 01/22/24 09:54 Potassium 4.5 mmol/L (3.5-5.1) 01/22/24 09:54 Chloride 96 mmol/L (98-107) L 01/22/24 09:54 Carbon Dioxide 20 mmol/L (22-29) L 01/22/24 09:54 Anion Gap 22.5 (5-19) H 01/22/24 09:54 BUN 15 mg/dL (6-20) 01/22/24 09:54 Creatinine 0.7 mg/dL (0.5-0.9) 01/22/24 09:54 GFR Calculation 90.9 mL/min (90-130) 01/22/24 09:54 Glucose 71 mg/dL (65-115) 01/22/24 09:54 Calculated Osmolality 277 mOsm/kg (285-295) L 01/22/24 09:54 Calcium 9.3 mg/dL (8.5-10.5) 01/22/24 09:54 Total Bilirubin 0.8 mg/dL (0.15-1.2) 01/22/24 09:54 AST 24 U/L (0-32) 01/22/24 09:54 ALT 6 U/L (0-33) 01/22/24 09:54 Alkaline Phosphatase 80 U/L (35-105) 01/22/24 09:54 Total Protein 8.3 g/dL (6.6-8.7) 01/22/24 09:54 Albumin 4.5 g/dL (3.5-5.2) 01/22/24 09:54 Globulin 3.8 g/dL (1.3-4.6) 01/22/24 09:54 Lipase 40 U/L (13-60) 01/22/24 09:54 Urine Color Dark yellow (Yellow) 01/22/24 10:04 Urine Appearance Cloudy (CLEAR) A 01/22/24 10:04 Urine pH 6 (5-7) 01/22/24 10:04 Ur Specific [place] 1.025 (1.005-1.030) 01/22/24 10:04 Urine Protein 1+ (Negative) H 01/22/24 10:04 Urine Glucose (UA) Norm (Normal) 01/22/24 10:04 Urine Ketones 3+ (Negative) H 01/22/24 10:04 Urine Blood 3+ (Negative) H 01/22/24 10:04 Urine Nitrate Positive (Negative) H 01/22/24 10:04 Urine Bilirubin Neg (Negative) 01/22/24 10:04 Urine Urobilinogen Norm mg/dL (Negative) 01/22/24 10:04 Ur Leukocyte Esterase Negative (Negative) 01/22/24 10:04 Urine RBC 5-10 /hpf (0-2) H 01/22/24 10:04 Urine WBC 25-40 /hpf (0-5) H 01/22/24 10:04 Ur Squamous Epith Cells 5-10 /hpf (0-5) H 01/22/24 10:04 Amorphous Sediment Not Reportable 01/22/24 10:04 Urine Bacteria 3+ /hpf (NONE) H 01/22/24 10:04 Urine Mucus Trace /hpf 01/22/24 10:04 All radiology interpretation(s) finalized by discharge Discharge Plan Discharge Patient Disposition: Home Clinical Impression: Abdominal pain Qualifiers: Abdominal location: generalized Qualified Code(s): R10.84 - Generalized abdominal pain Urinary tract infection Qualifiers: Urinary tract infection type: acute cystitis Hematuria presence: with hematuria Qualified Code(s): N30.01 - Acute cystitis with hematuria Condition: Stable Prescriptions: New ciprofloxacin HCl 500 mg tablet 500 mg PO Q12H Qty: 20 0RF Discharge Orders: Discharge ED (Routine); Ordered 01/22/24 Ordered By: Teo Sheridan Referrals: Rita Sanders DO [Primary Care Provider] - Patient Instructions: Abdominal Pain (ED), Urinary Tract Infection in Women (DC) Activity Restrictions/Additional Instructions: Your lab work performed in the ER did not show any acute cause of your abdominal pain other than a urinary tract infection. You will be treated with an antibiotic called Cipro, this was sent to your pharmacy, please take it as directed. Please follow-up with family practice physician within next 7 to 10 days for further evaluation and treatment as needed. Coding Level of Care Code ED Double Ending Machine Operator for Lion Reyna
[2024-01-22 10:15] LABS: Alanine Aminotransferase 6 U/L (0-33); Albumin Level 4.5 g/dL (3.5-5.2); Alkaline Phosphatase 80 U/L (35-105); Anion Gap 22.5 (5-19); Aspartate Amino Transferase 24 U/L (0-32); Blood Urea Nitrogen 15 mg/dL (6-20); Calcium 9.3 mg/dL (8.5-10.5); Carbon Dioxide 20 mmol/L (22-29); Chloride 96 mmol/L (98-107); Creatinine Clr Calc Pharmacy 91.3253; Globulin 3.8 g/dL (1.3-4.6); Glomerular Filtration Rate 90.9 mL/min (90-130); Glucose 71 mg/dL (65-115); Lipase 40 U/L (13-60); Osmolality Calculated 277 mOsm/kg (285-295); Potassium 4.5 mmol/L (3.5-5.1); Sodium 134 mmol/L (136-145); Total Bilirubin 0.8 mg/dL (0.15-1.2); Total Protein 8.3 g/dL (6.6-8.7)
[2024-01-22 10:42] LABS: Add Urine Microscopic? YES; Bilirubin Urine Neg (Negative); Blood Urine 3+ (Negative); Glucose Urine UA Norm (Normal); Ketones Urine 3+ (Negative); Leukocyte Esterase Urine Negative (Negative); Nitrate Urine Positive (Negative); Protein Urine 1+ (Negative); Specific Gravity, Urine 1.025 (1.005-1.030); Urine Appearance Cloudy (CLEAR); Urine Color Dark Yellow (Yellow); Urobilinogen Urine Norm (Negative); pH Urine 6 (5-7)
[2024-01-22 10:47] LABS: Add Urine Culture? Yes; Bacteria Urine 3+ /hpf; Mucus Urine TRACE /hpf; WBC Urine 25-40 /hpf (0-5)
== END 2024-01-22 11:06 | disposition home or self-care (01) ==
PROVIDERS: Emergency Provider Emergency Medicine; PCP Family Medicine
DX: R10.84 Generalized abdominal pain (principal); N30.01 Acute cystitis with hematuria; Z72.0 Tobacco use
CPT/HCPCS: 36415; 80053; 81001; 83690; 85025; 87077; 87086; 87186; 99283

== ENCOUNTER → 2025-03-17 16:32 | Outpatient (BNVA) | payer MEDICAID, SELFPAY | PROVIDERS: PCP Family Medicine; Visit Provider Nurse Practitioner Women's Health | DX: Z01.419 Encounter for gynecological examination (general) (routine) without abnormal findings (principal) | CPT/HCPCS: 80053; 82306; 83036; 84443; 85025; 86592; 86705; 86706; 86709; 86803; 87340; 87491; 87591; 87624; 87661; 87806 ==